=== PATIENT | female | born 1950 | race Caucasian/White ===

== ENCOUNTER 2018-04-03 08:02 | Day surgery (SDC) | payer OTHER, BC ==
[2018-03-25 10:46] VITALS: BMI 28.0
[2018-04-03] MEDS ORDERED: PROPOFOL 20 ML ONE ×2 (08:25)
[2018-04-03] MEDS ORDERED: LIDOCAINE HCL/PF 2% SDV 5ML VIAL ONE (08:33)
[2018-04-03 10:36] VITALS: TEMP 97.5
[2018-04-03 10:38] VITALS: BP 124/66; PULSE 56
== END 2018-04-03 10:40 | disposition home or self-care (01) ==
LOC: FASU-ENDO 08:02
PROVIDERS: ATTEND Internal Medicine Gastroenterology
PROC: 0DBK8ZX Excision of Ascending Colon, Via Natural or Artificial Opening Endoscopic, Diagnostic (ICD-10-PCS; principal; 2018-04-03 09:37)
DX: Z12.11 Encounter for screening for malignant neoplasm of colon (principal); K63.5 Polyp of colon; K57.30 Diverticulosis of large intestine without perforation or abscess without bleeding